=== PATIENT | male | born 1960 | race Caucasian/White ===

== ENCOUNTER 2017-01-14 07:24 | Emergency (ER) | payer OTHER, BC ==
[~2017-01-14] VITALS: Ht 175.3 cm; Wt 84.1 kg
[~2017-01-14 07:24] MED LIST: AMOXICILLIN 8751 TAB PO; AZILECT1 MG PO; COUMADIN 3MG3 MG/TAB PO; COUMADIN 5MG5 MG/TAB PO; COUMADIN4 MG PO; CRESTOR5 MG PO; DULCOLAX TAB5 MG PO; FLEXERIL10 MG PO; LIPITOR 10MG10 MG PO; LORTAB 5/500 501 TAB PO; LOVENOX100 MG/ML SC; MIRAPEX0.25 MG PO; NEURONTIN300 MG/CAP PO; NORCO 325 MG-51 TAB PO; PERCOCET 325 MG1 TA2 PO; SINEMET 25/101 UDTAB PO; TOPAMAX 25MG25 M1 PO; ULTRAM 50MG TAB50 MG PO; WARFARIN SODIUM3 MG PO; WARFARIN SODIUM4 MG PO; ZOFRAN8 MG PO
[2017-01-14 07:29] VITALS: TEMP 97.5
[2017-01-14 07:36] LABS: BASO % 0.5 % (0.0-2.0); EOS # 0.1 (0.0-0.7); EOS % 1.4 % (0-4.0); GRAN % 46.4 % (42.2-75.2); HEMATOCRIT 42.4 % (42.0-52.0); HEMOGLOBIN 14.3 g/dl (13.5-18.0); LYMPH # 1.8 (1.2-3.4); LYMPH % 41.1 % (20.0-51.0); MEAN CELL VOLUME 90 fl (80.0-100.0); MEAN CORPUSCULAR HEMOGLOBIN 30 pg (27.0-31.0); MEAN CORPUSCULAR HGB CONC 34 g/dl (33.0-37.0); MEAN PLATELET VOLUME 9.1 fl (7.4-10.4); MONO # 0.4 (0.1-0.6); MONO % 10.1 % (1.7-9.3); PLATELET COUNT 202 K/mm3 (130-400); RED BLOOD COUNT 4.71 M/mm3 (4.20-5.60); WHITE BLOOD COUNT 4.3 K/mm3 (4.8-10.8)
[2017-01-14 07:47] LABS: INR 2.2 (0.8-3.0); PROTHROMBIN TIME 25.3 SECONDS (9.7-12.8)
[2017-01-14] MEDS ORDERED: RESTORIL 1515 MG/CAP PO (07:59)
[2017-01-14] MEDS ORDERED: FLORINEF ACETA0.1 MG PO (07:59)
[2017-01-14] MEDS ORDERED: MIDRIN 325 MG-11 CAP PO (08:00)
[2017-01-14] MEDS ORDERED: WELLBUTRIN XL300 M1 PO (08:00)
[2017-01-14] MEDS ORDERED: LIPITOR 40MG TA40 MG PO (08:01)
[2017-01-14 08:06] LABS: ADJUSTED CALCIUM 9.3 mg/dL (8.4-10.2); ALANINE AMINOTRANSFERASE 15 U/L (21-72); ALBUMIN 4.1 gm/dL (3.5-5.0); ALKALINE PHOSPHATASE 76 U/L (50-136); ANION GAP 11 mmol/L (7-16); BILIRUBIN,TOTAL 0.7 mg/dL (0.0-1.0); BLOOD UREA NITROGEN 9 mg/dL (9-20); CALCIUM 9.4 mg/dL (8.4-10.2); CARBON DIOXIDE 24 mmol/L (22-30); CHLORIDE 104 mmol/L (98-107); CREATININE, serum 0.83 mg/dL (0.66-1.25); GLUCOSE 94 mg/dL (74-106); POTASSIUM 3.7 mmol/L (3.4-5.0); SODIUM 140 mmol/L (137-145); TOTAL PROTEIN 6.8 gm/dL (6.4-8.2)
[2017-01-14 08:17] LABS: TROPONIN-I < 0.012 ng/mL (0.000-0.034)
[2017-01-14] MEDS ORDERED: NORCO 325 MG-51 TAB PO (09:17)
[2017-01-14 09:30] VITALS: BP 137/85; PULSE 67
== END 2017-01-14 09:40 | disposition home or self-care (01) ==
LOC: COL.ER 07:24
PROVIDERS: Emergency Medicine
DX: S80.02XA Contusion of left knee, initial encounter (principal); S60.212A Contusion of left wrist, initial encounter; S20.219A Contusion of unspecified front wall of thorax, initial encounter; G20 Parkinson's disease; E78.00 Pure hypercholesterolemia, unspecified; Z98.890 Other specified postprocedural states; Z79.01 Long term (current) use of anticoagulants; V49.40XA Driver injured in collision with unspecified motor vehicles in traffic accident, initial encounter
CPT/HCPCS: J3010; J7030; Q9967

== ENCOUNTER → 2020-01-12 | Outpatient (CLI) | payer OTHER, BC ==
[~2020-01-12] MED LIST changes: +COUMADIN 22.5 MG/TAB PO; +FLORINEF ACETA0.1 MG PO; +LIPITOR 40MG TA40 MG PO; +MIDRIN 325 MG-11 CAP PO; +RESTORIL 1515 MG/CAP PO; +WELLBUTRIN XL300 M1 PO
== END ==
LOC: ZCOL.LAB 15:57
DX: U07.1 COVID-19 (principal)

== ENCOUNTER 2020-05-29 18:43 | Emergency (ER) | payer OTHER ==
[~2020-05-29] VITALS: Ht 175.3 cm; Wt 100.0 kg
[2020-05-29 19:03] VITALS: BP 114/84; TEMP 98
[2020-05-29 20:17] VITALS: PULSE 110
== END 2020-05-29 20:18 | disposition home or self-care (01) ==
LOC: COL.ER 18:43
DX: S61.011A Laceration without foreign body of right thumb without damage to nail, initial encounter (principal); G20 Parkinson's disease; Z23 Encounter for immunization; W26.0XXA Contact with knife, initial encounter; Y92.009 Unspecified place in unspecified non-institutional (private) residence as the place of occurrence of the external cause